=== PATIENT | female | born 1965 | race Caucasian/White ===

== ENCOUNTER → 2018-02-13 | Day surgery (SDC) | payer OTHER ==
[~2018-02-13] VITALS: Ht 157.5 cm; Wt 79.4 kg
[~2018-02-13] MED LIST: ADDERALL XR30 MG PO; ADVIL200 MG PO; ALEVE220 MG PO; ALPRAZOLAM2 MG PO; AMBIEN5 M1 PO; BUSPIRONE HCL10 M1 PO; DIAZEPAM5 MG PO; INDOMETHACIN25 M1 PO; LINZESS72 MCG PO; LISINOPRIL-HCT1 EAC1 PO; MACROBID 100 M100 MG PO; MYRBETRIQ25 M1 PO; OMEPRAZOLE20 M3 PO; PROAIR HFA8.5 GM INH; SEROQUEL (MONO200 MG PO; SEROQUEL XR300 M1 PO; TRAZODONE HCL150 M1 PO; TRAZODONE100 MG PO; ZOLPIDEM TART10 MG PO
--- NOTE | 2018-02-13 17:48 | Operative Report ---
Operative/Inv Procedure Report Surgery Date: 02/13/18 Name of Procedure: rectocele/enterocele repair Pre-Operative Diagnosis: rectocele/enterocele, vaginal laxity Post-Operative Diagnosis: same Estimated Blood Loss: scant (150cc) Surgeon/[place] Floater: Bernadine Mcclendon MD Anesthesia: laryngeal mask airway Implants: Acell mesh Drains: none Complications: none Condition: stable Operative Indication: rectocele requiring splinting Operative/Procedure Note Note: Operative dictation on patient Marilee Seth. 52-year-old female with a history of history of rectocele enterocele requiring splinting to have defecations. She also states vaginal laxity and wishes to have this improved as well. She was given the risks benefits and alternatives of enterocele rectocele repair with mesh and without and the risks benefits and alternatives of each. All questions were answered. She signed a consent after all questions were answered. Patient was taken to the operating placed on the operating table in supine position. Timeout was performed. IV antibiotics were infused and LMA anesthesia was started. She was then placed in the dorsolithotomy position and prepped and draped in the standard sterile fashion. [place] retractor was placed with 6 stay hooks. 1% lidocaine with epinephrine was infiltrated into the posterior vaginal wall for hemostasis and hydrodissection. Incision was made horizontally at the posterior fourchette. Metzenbaum scissors were then used to incise the posterior vaginal wall taking care not to injure the rectum. Periodic rectal exams were performed to ensure that there was no injury and that the plane was easily identifiable to dissect free the rectocele from the epithelium. Once the entire rectocele and enterocele were mobilized and no injury was noted on the intestines or the rectum, interrupted 2-0 Vicryl sutures were placed from the apex down to the perineal body laterally at the fascial edge. The a cell mesh which had been soaking since the start of the case was then cut to fit the defect. This was placed at the apex with 2-0 Vicryl suture and at the perineal body with a 2-0 Vicryl suture. The 2-0 Vicryl sutures were then sequentially tied down starting from the apex to the distal aspect. The rectocele was seen to be nicely reduced. The perineal body was then infiltrated with 1% lidocaine with epinephrine and a wedge resection was performed down to the fascia layer. The defect defect was corrected using 2-0 Vicryl suture deep followed by 3-0 Vicryl in the subcutaneous cutaneous layer. This allowed for tightening of the introitus to 2 fingerbreadths. Rectal exam showed the rectocele defect to be obliterated and the rectal canal was linear without protruding into the vagina. Cystoscopy was performed bladder was globally inspected. There were no abnormalities or defects or lesions noted. The sponge and needle count were correct at the end of the case. Patient tolerated procedure well.
== END ==
LOC: STS 02:31
DX: N81.6 Rectocele (principal); N81.5 Vaginal enterocele; N89.8 Other specified noninflammatory disorders of vagina; R35.0 Frequency of micturition; N39.41 Urge incontinence; Z87.891 Personal history of nicotine dependence; I10 Essential (primary) hypertension
CPT/HCPCS: C1781; J0131; J0744; J2250; Q9968